=== PATIENT | female | born 1955 | race Caucasian/White ===

== ENCOUNTER 2018-10-12 11:44 | Day surgery (SDC) | payer MEDICAID ==
[~2018-10-12] VITALS: Ht 157.5 cm; Wt 65.9 kg
--- NOTE | ~2018-10-12 | OP ---
PATIENT NAME: PHIL PLATA MEDICAL RECORD: [id number] :51 [facility] DATE: SURGEON: EVELYN DELGADO MD DATE OF OPERATION: 10/12/2018 PROCEDURE: EGD with biopsy. MOLDER FEEDER: Evelyn Delgado MD SCOPE: Olympus video gastroscope. MEDICATIONS: Per TIVA anesthesia. The patient received 100 mg of propofol for this procedure, O2 of 4 liters. INDICATION FOR THE PROCEDURE: Iron deficiency anemia. The patient denies all GI problems except for gastroesophageal reflux disease. DESCRIPTION OF PROCEDURE: Informed consent was given. The patient was made comfortable with the above medications. After reaching an adequate level of sedation by slow IV push, the patient was placed on her left side. The endoscope was then advanced under direct visualization through the posterior pharyngeal area and advanced to the distal esophagus. At the distal esophageal area, the patient had erythema, edema, erosions and a few scattered ulcers in this same area. Multiple biopsies were obtained. The patient is on Coumadin and did stop this medication 5 days ago, but she did bleed fairly freely while we were taking the biopsies. We did observe the patient for signs of peristalsis and she did clot effectively. The patient was noted to have a hiatal hernia, which was seen both on direct and retroflexed views as well as a nonstenotic Schatzki's ring. We then proceeded through the gastroesophageal junction to the stomach where marked inflammation, erythema, and edema was seen throughout the entire stomach, but this was most pronounced at the antral area. The patient did have multiple small gastric ulcers within the antrum and biopsies were obtained. None of these ulcers were actively bleeding. No visible vessels were present. The duodenal bulb had mild inflammation. The second portion also had some congestion as well as erythema and edema. Biopsies were taken within the second portion of the duodenum and the scope was then withdrawn. IMPRESSION: 1. Distal esophageal erosions. 2. A few scattered distal esophageal ulcerations without visible vessels, not actively bleeding. 3. Nonstenotic Schatzki's ring. 4. Small hiatal hernia. 5. Erosive gastritis throughout the entire stomach. 6. Multiple small benign appearing gastric ulcers at the antral area. No visible vessels, not actively bleeding. 7. Duodenitis. No ulcers, no erosions. Biopsies were taken at the distal esophagus, the antrum, and the second portion of the duodenum. PLAN: 1. No anti-inflammatory drugs please. 2. The patient can resume Coumadin tomorrow. 3. We will place the patient on Protonix at a dose of 40 mg p.o. q.a.m. and famotidine 20 mg p.o. q.h.s. OPERATIVE REPORT [id number] PHIL PLATA 4. Reflux precautions stringently, both dietary and positional that is no chocolate, tomato, citrus, caffeine, fatty foods, peppermint. No tobacco and no alcohol. The patient should not eat late at night and sit up for a couple hours after every meal. 5. Repeat the EGD with TIVA anesthesia in 8 weeks to document healing of ulcers. TRANSINT:[id number] Voice Confirmation ID: [id number] DOCUMENT ID: [id number] EVELYN DELGADO MD at 1516 CC: GRACE MOON and LUIS LUJAN [id number] DICTATION DATE: 10/12/18 1351 AUTOMOTIVE WORKER: 10/12/18 1705 [facility] 10/12/18 [id number] [place] [address]
[2018-10-12 12:31] LABS: ANION GAP 11.3 mmol/L (8-16); CALCIUM 9.6 mg/dL (8.5-10.1); CARBON DIOXIDE 28.1 mmol/L (21.0-32.0); CREATININE - SERUM 1.1 mg/dL (0.6-1.3); POTASSIUM - SERUM 4.4 mmol/L (3.5-5.1)
[2018-10-12 12:53] LABS: HEMATOCRIT 35.3 % (36.0-48.0); HEMOGLOBIN 11.2 g/dL (12-16); MCH 26.9 pg (26.0-34.0); MCHC 31.7 g/dL (31.0-37.0); MCV 84.7 fL (80.0-100.0); MEAN PLATELET VOLUME 9.8 fL (7.4-10.4); RBC 4.17 10x6/uL (4.00-5.40); RDW 16.2 % (11.5-14.5); WBC 8.6 10x3/uL (4.8-10.8)
[2018-10-12] MEDS ORDERED: BENLYSTA (13:16)
[2018-10-12] MEDS ORDERED: CYCLOBENZAPRINE10 MG (13:16)
[2018-10-12 13:17] VITALS: BP 169/70; Ht 157.5 cm; Wt 65.9 kg
[2018-10-12] MEDS ORDERED: COUMADIN2 MG PO (13:17)
[2018-10-12] MEDS ORDERED: CARDIZEM60 MG (13:17)
[2018-10-12] MEDS ORDERED: LEFLUNOMIDE (13:18)
[2018-10-12] MEDS ORDERED: LEVOTHYROXINE50 MCG PO (13:19)
[2018-10-12] MEDS ORDERED: HYDROXYCHLOR TAB 200 (13:19)
[2018-10-12] MEDS ORDERED: NEURONTIN 300300 MG PO (13:20)
[2018-10-12] MEDS ORDERED: NORCO 7.5/325 T1 TA1 PO (13:20)
[2018-10-12] MEDS ORDERED: METFORMIN HCL500 M1 PO (13:20)
[2018-10-12] MEDS ORDERED: ALDACTONE25 MG PO (13:21)
[2018-10-12] MEDS ORDERED: FUROSEMIDE40 MG PO (13:21)
== END 2018-10-12 15:10 | disposition home or self-care (01) ==
LOC: EDSEX 11:44 → D.OPS 11:44
PROVIDERS: Anesthesiology
DX: K22.10 Ulcer of esophagus without bleeding (principal); K22.2 Esophageal obstruction; K44.9 Diaphragmatic hernia without obstruction or gangrene; K29.00 Acute gastritis without bleeding; K29.80 Duodenitis without bleeding; Z01.812 Encounter for preprocedural laboratory examination

== ENCOUNTER 2018-11-04 11:36 | Day surgery (SDC) | payer MEDICAID ==
[~2018-11-04] VITALS: Ht 157.5 cm; Wt 65.9 kg
--- NOTE | ~2018-11-04 | OP ---
PATIENT NAME: PHIL PLATA MEDICAL RECORD: [id number] :51 LOCATION:[facility] ADMISSION DATE: SURGEON: EVELYN DELGADO MD DATE OF OPERATION: 11/04/2018 PROCEDURE: Colonoscopy with polypectomy. NATURAL RESOURCES ENGINEER: Evelyn Delgado MD SCOPE: Olympus video colonoscope. INDICATION FOR THE PROCEDURE: Iron deficiency anemia and altered bowel function. The patient received 150 mg for the propofol for this procedure, O2 4 liters. DESCRIPTION OF THE PROCEDURE: Informed consent was given. The patient was made comfortable with the above medications. After reaching an adequate level of sedation by slow IV push, the patient was placed on her left side. The rectal exam revealed poor sphincter tone. No fissures or fistulas were appreciated. No external skin tags were seen. The colonoscope was advanced to the cecum where the ileocecal valve and appendiceal orifice were identified. The prep was fair. On withdrawal of the scope, mucosa was carefully inspected. The patient had a 1 cm polyp on the ileocecal valve, which was removed with hot biopsy forcep technique. On additional withdrawal of the scope, spasm associated with irritable bowel syndrome was appreciated, most pronounced on the left side of the colon. Within the rectal vault, some inflammation was appreciated. No biopsies were taken due to the risk of bleeding. The inflammation was seen to be very mild and could have been due to the prep or medications. On retroflexion and final withdrawal of the scope, both internal and external hemorrhoids were appreciated. The external hemorrhoids had a slight amount of heme present. IMPRESSION: 1. Polyp 1 cm in size on the ileocecal valve, removed with hot biopsy forcep technique. 2. Spasm associated with irritable bowel syndrome. 3. Very mild rectal inflammation noted. 4. Both internal and external hemorrhoids, there was a slight amount of bleeding noted on one of the external hemorrhoids. PLAN: 1. Avoid anti-inflammatory drugs times 14 days. 2. High fiber diet. 3. Probiotics. 4. For the hemorrhoids, the patient should purchase some 1% cortisone cream and apply b.i.d. TRANSINT:[id number] Voice Confirmation ID: [id number] DOCUMENT ID: [id number] OPERATIVE REPORT [id number] PHIL PLATA BRENDA MD CC: IGBODIKI,OYIDILUIS Estrada [id number] DICTATION DATE: 11/04/18 1622 [employer] M[employer] OPERATOR: 11/04/18 2351 [facility] [place] 11/04/18 [id number] [place] [address]
[~2018-11-04 11:36] MED LIST: ALDACTONE25 MG PO; BENLYSTA; CARDIZEM60 MG; COUMADIN2 MG PO; CYCLOBENZAPRINE10 MG; FUROSEMIDE40 MG PO; HYDROXYCHLOR TAB 200; LEFLUNOMIDE; LEVOTHYROXINE50 MCG PO; METFORMIN HCL500 M1 PO; NEURONTIN 300300 MG PO; NORCO 7.5/325 T1 TA1 PO
[2018-11-04 12:20] LABS: ANION GAP 14.4 mmol/L (8-16); CALCIUM 10.3 mg/dL (8.5-10.1); CARBON DIOXIDE 26.6 mmol/L (21.0-32.0); CREATININE - SERUM 1.1 mg/dL (0.6-1.3)
[2018-11-04 12:22] LABS: APTT 29.9 SECONDS (22.8-39.4); INR 1.1 (0.85-1.17); PROTIME 13.7 SECONDS (11.6-15.0)
[2018-11-04 12:24] LABS: HEMATOCRIT 35.9 % (36.0-48.0); HEMOGLOBIN 11.4 g/dL (12-16); MCH 26.1 pg (26.0-34.0); MCHC 31.8 g/dL (31.0-37.0); MCV 82.3 fL (80.0-100.0); MEAN PLATELET VOLUME 9.4 fL (7.4-10.4); RBC 4.36 10x6/uL (4.00-5.40); RDW 16.8 % (11.5-14.5)
[2018-11-04 12:30] VITALS: BP 159/85; Ht 157.5 cm; Wt 65.9 kg
--- NOTE | 2018-11-04 16:39 | NUR ---
DR. RINALDI SPOKE TO PT REGARDING PROCEDURE.
--- NOTE | 2018-11-04 17:00 | NUR ---
DC INSTRUCTIONS GIVEN TO PT/FAMILY. STATE UNDERSTANDING. DC'D IV CATH FULLY INTACT.
--- NOTE | 2018-11-04 17:06 | NUR ---
PT LEFT UNIT VIA WC AT 1710
== END 2018-11-04 17:10 | disposition home or self-care (01) ==
LOC: D.OPS 11:36
PROVIDERS: Anesthesiology
DX: K63.5 Polyp of colon (principal); K58.9 Irritable bowel syndrome, unspecified; K62.89 Other specified diseases of anus and rectum; K64.8 Other hemorrhoids; K64.4 Residual hemorrhoidal skin tags; D50.9 Iron deficiency anemia, unspecified; Z01.812 Encounter for preprocedural laboratory examination